=== PATIENT | female | born 1980 | race African-American/Black ===

== ENCOUNTER 2018-10-16 17:41 | Emergency (ER) | payer SELFPAY ==
[~2018-10-16] VITALS: Wt 72.6 kg
[2018-10-16] MEDS ORDERED: CYCLOBENZAPRINE10 MG PO (19:33)
[2018-10-16] MEDS ORDERED: PREDNISONE50 MG PO (19:33)
[2018-10-16] MEDS ORDERED: NAPROSYN500 MG PO (19:33)
== END 2018-10-16 19:37 | disposition home or self-care (01) ==
LOC: ED 17:41
DX: S39.012A Strain of muscle, fascia and tendon of lower back, initial encounter (principal); M54.30 Sciatica, unspecified side; M79.605 Pain in left leg; M79.604 Pain in right leg; Z88.5 Allergy status to narcotic agent; Z88.2 Allergy status to sulfonamides; W00.0XXA Fall on same level due to ice and snow, initial encounter; Y93.89 Activity, other specified; Y92.89 Other specified places as the place of occurrence of the external cause; Y99.8 Other external cause status

== ENCOUNTER → 2018-10-24 | Outpatient (CLI) | payer SELFPAY ==
[~2018-10-24] MED LIST: AUGMENTIN 875-875 MG PO; CORTISPORIN SUS10 ML OT; CYCLOBENZAPRINE10 MG PO; NAPROSYN500 MG PO; PREDNISONE50 MG PO; VISTARIL25 MG PO
== END | disposition home or self-care (01) ==
LOC: RESCLI 02:29
DX: H65.01 Acute serous otitis media, right ear (principal); H60.91 Unspecified otitis externa, right ear; I10 Essential (primary) hypertension; F41.9 Anxiety disorder, unspecified; F41.0 Panic disorder [episodic paroxysmal anxiety]; M25.551 Pain in right hip; R25.1 Tremor, unspecified; R00.0 Tachycardia, unspecified; Z88.8 Allergy status to other drugs, medicaments and biological substances

== ENCOUNTER 2018-11-04 | Emergency (ER) | payer SELFPAY ==
--- NOTE | ~2018-11-04 | EKG ---
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
[2018-11-04 13:49] LABS: BASO # 0.1 10*3/uL (0.0-0.1); BASO % 0.6 % (0.0-1.0); EOS % 0.1 % (1.0-4.0); HEMATOCRIT 47.3 % (37.0-47.0); HEMOGLOBIN 15.8 g/dl (12.0-16.0); LYMPH # 3.1 10*3/uL (1.3-4.4); LYMPH % 29.4 % (27.0-41.0); MEAN CELL VOLUME 87.4 fl (81.0-99.0); MEAN CORPUSCULAR HGB 29.2 pg (27.0-31.0); MEAN CORPUSCULAR HGB CONC 33.4 g/dl (33.0-37.0); MEAN PLATELET VOLUME 10.3 fl (9.6-12.3); MONO # 0.7 10*3/uL (0.1-1.0); MONO % 6.3 % (3.0-9.0); NEUT # 6.7 10*3/uL (2.3-7.9); NEUT % 62.8 % (47.0-73.0); PLATELET COUNT AUTOMATED 366 10*3/uL (130-400); RED BLOOD COUNT 5.41 10*6/uL (4.10-5.10); RED CELL DISTRI WIDTH 13.9 % (0-14.5); WHITE BLOOD COUNT 10.7 10*3/uL (4.8-10.8)
[2018-11-04 13:58] LABS: ACT PARTIAL THROMBO TIME 25.1 SECONDS (20.8-31.5); INTERNATIONAL NORM RATIO 0.9 (2.0-3.5)
[2018-11-04 14:04] LABS: ALBUMIN 3.9 gm/dl (3.1-4.5); ALKALINE PHOSPHATASE 104 U/L (45-117); BUN 10 mg/dl (7-24); CHLORIDE 107 mmol/L (98-107); CREATININE 1.04 mg/dL (0.55-1.02); LIPASE 140 U/L (73-393); POTASSIUM 3.6 mmol/L (3.5-5.1); SGOT/AST 17 IU/L (3-35); SGPT/ALT 31 U/L (12-78); SODIUM 138 mmol/L (136-145); TOTAL PROTEIN 8.1 gm/dL (6.4-8.2)
[2018-11-04 14:08] LABS: BETA-HCG, QUANT < 1.0 mIU/mL (1-3); TROPONIN I < 0.015 ng/ml (<0.045)
[2018-11-04] MEDS ORDERED: XANAX1 MG PO (15:57)
== END 2018-11-04 16:19 | disposition home or self-care (01) ==
PROVIDERS: Emergency Medicine
DX: F41.0 Panic disorder [episodic paroxysmal anxiety] (principal); I10 Essential (primary) hypertension; Z88.5 Allergy status to narcotic agent; Z88.2 Allergy status to sulfonamides; Z79.899 Other long term (current) drug therapy; Z79.2 Long term (current) use of antibiotics

== ENCOUNTER → 2018-11-07 | Outpatient (CLI) | payer SELFPAY ==
[~2018-11-07] MED LIST changes: +XANAX1 MG PO
--- NOTE | ~2018-11-07 | EKG ---
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
== END | disposition home or self-care (01) ==
DX: I10 Essential (primary) hypertension (principal); I49.9 Cardiac arrhythmia, unspecified; F41.9 Anxiety disorder, unspecified; M54.40 Lumbago with sciatica, unspecified side; G89.29 Other chronic pain; F17.200 Nicotine dependence, unspecified, uncomplicated; Z71.6 Tobacco abuse counseling; Z88.8 Allergy status to other drugs, medicaments and biological substances